=== PATIENT | female | born 1995 | race Caucasian/White ===

== ENCOUNTER 2020-11-14 08:30 | Outpatient (RCR) | payer OTHER ==
[2020-11-05 08:27] VITALS: BP 118/78; PULSE 66; TEMP 98.4
[2020-11-06 08:37] VITALS: BP 144/84; PULSE 58; TEMP 98.4
[~2020-11-14] VITALS: Ht 165.1 cm; Wt 72.4 kg
[~2020-11-14 08:30] MED LIST: SYNTHROID0.075 MG/T PO
[2020-11-16 11:09] LABS: THYROGLOBULIN AB SCREEN <1.8 IU/mL (<1.8); THYROGLOBULIN TUMOR MARKER 42 ng/mL (())
== END 2021-02-03 | disposition home or self-care (01) ==
LOC: COL.RAD
PROVIDERS: Student in an Organized Health Care Education/Training Program
DX: C73 Malignant neoplasm of thyroid gland (principal)
CPT/HCPCS: A9517; J3240